=== PATIENT | female | born 1995 | race Two or more races ===

== ENCOUNTER 2017-03-22 18:23 | Emergency (ER) | payer SELFPAY ==
[~2017-03-22] VITALS: Ht 154.9 cm; Wt 63.1 kg
[~2017-03-22 18:23] MED LIST: HYDROXYZINE HCL25 MG PO; LICE TREATMENT118 ML TP; MEDROL DOSEPAK4 MG PO; NORCO 5/3251 TABLET PO
[2017-03-22 18:50] VITALS: BP 117/73
[2017-03-22] MEDS ORDERED: ULTRAM50 MG PO (19:54)
== END 2017-03-22 20:15 | disposition home or self-care (01) ==
LOC: RME 18:23 → EME 18:23 → RME 20:15
DX: M25.561 Pain in right knee (principal); M25.551 Pain in right hip; J45.909 Unspecified asthma, uncomplicated; F17.200 Nicotine dependence, unspecified, uncomplicated
CPT/HCPCS: 73502; 73564; 99281; 99283